=== PATIENT | male | born 1960 | race Hispanic/Latino ===

== ENCOUNTER 2024-04-05 12:27 | Outpatient (CLI) | payer BC | END 2024-04-05 12:28 | disposition home or self-care (01) | LOC: CSHMRI 12:27 | PROVIDERS: ATTEND Surgery | DX: K60.30 Anal fistula, unspecified (principal); L98.8 Other specified disorders of the skin and subcutaneous tissue | CPT/HCPCS: 36415; 72197; 82565 ==